=== PATIENT | male | born 1980 | race Caucasian/White ===

== ENCOUNTER → 2017-02-01 | Outpatient (REF) | payer OTHER ==
[2017-02-01 15:08] LABS: PERCENT SATURATION 21.8 % (19.7-37.4)
== END ==
LOC: M LAB REF 14:04
PROVIDERS: ATTEND Internal Medicine
DX: E83.110 Hereditary hemochromatosis (principal)

== ENCOUNTER → 2017-02-28 | Outpatient (REF) | payer OTHER | LOC: M LAB REF 13:07 | PROVIDERS: ATTEND Physician Assistant | DX: J02.9 Acute pharyngitis, unspecified (principal) ==

== ENCOUNTER → 2017-08-24 | Outpatient (REF) | payer OTHER ==
[2017-08-24 13:29] LABS: PERCENT SATURATION 32.7 % (19.7-50.0)
== END ==
LOC: M LAB REF 11:50
PROVIDERS: ATTEND Internal Medicine
DX: E83.110 Hereditary hemochromatosis (principal)

== ENCOUNTER → 2017-12-13 | Outpatient (CLI) | payer OTHER ==
[2017-12-13 10:57] LABS: BASO % 0.1 % (0.0-1.0); EOS % 0.5 % (0.0-3.0); HEMATOCRIT 43.9 % (42.0-52.0); HEMOGLOBIN 14.5 g/dl (14.0-18.0); IMMATURE GRANULOCYTE % 0.4 % (0-3.0); LYMPH # 1.6 10^3/uL (1.5-4.5); LYMPH % 21.1 % (24.0-44.0); MEAN CORPUSCULAR HEMOGLOBIN 28.9 pg (27.0-33.0); MEAN CORPUSCULAR VOLUME 87.6 fl (80.0-96.0); MONO # 0.6 10^3/uL (0.0-0.8); MONO % 8.3 % (0.0-5.0); NEUTROPHILS # 5.2 10^3/uL (1.8-7.7); NEUTROPHILS % 69.6 % (36.0-66.0); PLATELET COUNT, AUTOMATED 225 10^3/uL (150-450); RED BLOOD COUNT 5.01 10^6/uL (4.30-6.10); RED CELL DISTRIBUTION WIDTH 12.7 % (11.5-14.5); WHITE BLOOD COUNT 7.5 10^3/uL (4.0-10.0)
[2017-12-13 11:10] LABS: ALBUMIN 3.8 GM/DL (3.2-5.2); ALBUMIN/GLOBULIN RATIO 1.03 (1.00-1.93); ALKALINE PHOSPHATASE 60 U/L (45-117); ALT/SGPT 39 U/L (12-78); ANION GAP 6 MEQ/L (8-16); AST/SGOT 21 U/L (7-37); BILIRUBIN,TOTAL 0.8 MG/DL (0.2-1.0); BLOOD UREA NITROGEN 21 MG/DL (7-18); CALCIUM LEVEL 8.4 MG/DL (8.5-10.1); CARBON DIOXIDE LEVEL 30 MEQ/L (21-32); CHLORIDE LEVEL 104 MEQ/L (98-107); CREATININE FOR GFR 1.03 MG/DL (0.70-1.30); GLOMERULAR FILTRATION RATE > 60.0 (>60); GLUCOSE, FASTING 104 MG/DL (70-100); POTASSIUM SERUM 3.4 MEQ/L (3.5-5.1); SODIUM LEVEL 140 MEQ/L (136-145); TOTAL PROTEIN 7.5 GM/DL (6.4-8.2)
== END ==
LOC: M LAB 09:44
DX: R19.7 Diarrhea, unspecified (principal)
CPT/HCPCS: 80053

== ENCOUNTER → 2018-02-27 | Outpatient (REF) | payer OTHER ==
[2018-02-27 12:45] LABS: FERRITIN 114 NG/ML (26-388); IRON (FE) 112 UG/DL (65-175); PERCENT SATURATION 39.3 % (19.7-50.0); TOTAL IRON BINDING CAPACITY 285 UG/DL (250-450)
== END ==
LOC: M LAB REF 12:00
DX: E83.110 Hereditary hemochromatosis (principal)

== ENCOUNTER → 2018-08-26 | Outpatient (REF) | payer OTHER ==
[2018-08-26 13:17] LABS: FERRITIN 131 NG/ML (26-388); IRON (FE) 103 UG/DL (65-175); TOTAL IRON BINDING CAPACITY 312 UG/DL (250-450)
== END ==
LOC: M LAB REF 12:32
DX: E83.110 Hereditary hemochromatosis (principal)
CPT/HCPCS: 83550

== ENCOUNTER → 2019-02-03 | Outpatient (REF) | payer OTHER ==
[2019-02-03 14:04] LABS: PERCENT SATURATION 35.8 % (19.7-50.0)
== END ==
LOC: M LAB REF 12:22
PROVIDERS: ATTEND Internal Medicine
DX: E83.110 Hereditary hemochromatosis (principal)

== ENCOUNTER → 2020-02-20 | Outpatient (REF) | payer OTHER ==
[2020-02-20 12:41] LABS: PERCENT SATURATION 25.2 % (19.7-50.0)
== END ==
LOC: M LAB REF 12:04
PROVIDERS: ATTEND Internal Medicine
DX: E83.110 Hereditary hemochromatosis (principal)

== ENCOUNTER → 2021-03-02 | Outpatient (REF) | payer OTHER | LOC: M LAB REF 12:22 | PROVIDERS: ATTEND Internal Medicine | DX: E83.110 Hereditary hemochromatosis (principal); K75.81 Nonalcoholic steatohepatitis (NASH) ==

== ENCOUNTER → 2021-09-07 | Outpatient (REF) | payer OTHER ==
[2021-09-07 12:02] LABS: PERCENT SATURATION 35.2 % (19.7-50.0)
== END ==
LOC: M LAB REF 11:11
PROVIDERS: ATTEND Internal Medicine
DX: E83.110 Hereditary hemochromatosis (principal); K75.81 Nonalcoholic steatohepatitis (NASH)

== ENCOUNTER → 2022-03-15 | Outpatient (REF) | payer OTHER ==
[2022-03-15 13:29] LABS: FERRITIN 141 NG/ML (26-388); IRON (FE) 96 UG/DL (65-175); PERCENT SATURATION 36.4 % (19.7-50.0); TOTAL IRON BINDING CAPACITY 264 UG/DL (250-450)
[2022-03-15 13:48] LABS: HEPATITIS B SURFACE ANTIGEN NEGATIVE (NEGATIVE)
[2022-03-15 14:16] LABS: HEPATITIS B CORE ANTIBODY IGM NEGATIVE (NEGATIVE); HEPATITIS C VIRUS ABY INDEX 0.1 INDEX (<0.8)
== END ==
LOC: M LAB REF 12:13
PROVIDERS: ATTEND Internal Medicine
DX: E83.110 Hereditary hemochromatosis (principal); K75.81 Nonalcoholic steatohepatitis (NASH)

== ENCOUNTER → 2022-04-11 | Outpatient (CLI) | payer OTHER | LOC: M RAD 09:24 | PROVIDERS: ATTEND Internal Medicine | DX: K76.0 Fatty (change of) liver, not elsewhere classified (principal) ==

== ENCOUNTER → 2022-09-18 | Outpatient (REF) | payer OTHER ==
[2022-09-18 13:12] LABS: PERCENT SATURATION 27.9 % (19.7-50.0)
== END ==
LOC: M LAB REF 11:43
PROVIDERS: ATTEND Internal Medicine
DX: E83.110 Hereditary hemochromatosis (principal)

== ENCOUNTER → 2023-04-16 | Outpatient (REF) | payer OTHER | LOC: M LAB REF 12:16 | PROVIDERS: ATTEND Internal Medicine | DX: E83.110 Hereditary hemochromatosis (principal) ==

== ENCOUNTER 2023-07-13 18:30 | Emergency (ER) | payer OTHER ==
[~2023-07-13] VITALS: Ht 175.3 cm; Wt 163.6 kg
[2023-07-13 20:24] LABS: BASO % 0.2 % (0.0-1.0); EOS # 0.1 10^3/uL (0.0-0.5); EOS % 0.5 % (0.0-3.0); HEMATOCRIT 43.9 % (42.0-52.0); HEMOGLOBIN 14.2 g/dl (13.5-17.5); LYMPH # 1.9 10^3/uL (1.5-5.0); LYMPH % 16.2 % (24.0-44.0); MEAN CORPUSCULAR HEMOGLOBIN 28.5 pg (27.0-33.0); MEAN CORPUSCULAR HGB CONC 32.3 g/dl (32.0-36.5); MONO % 8.3 % (2.0-8.0); NEUTROPHILS # 8.6 10^3/uL (1.5-8.5); NEUTROPHILS % 74.4 % (36.0-66.0); PLATELET COUNT, AUTOMATED 221 10^3/uL (150-450); RED BLOOD COUNT 4.99 10^6/uL (4.30-6.10); WHITE BLOOD COUNT 11.6 10^3/uL (4.0-10.0)
[2023-07-13] MEDS ORDERED: ISOVUE-370 76% 100ML VIAL As Ordered ONE (20:41)
[2023-07-13 20:46] LABS: BLOOD UREA NITROGEN 23 MG/DL (9-23); CARBON DIOXIDE LEVEL 26 MMOL/L (20-31); CHLORIDE LEVEL 103 MMOL/L (98-107); CK-MB VALUE MASS < 1.0 NG/ML (<3.6); CREATININE FOR GFR 0.96 MG/DL (0.70-1.30); GLOMERULAR FILTRATION RATE > 60.0 (>60); GLUCOSE, FASTING 92 MG/DL (60-100); POTASSIUM SERUM 3.9 MMOL/L (3.5-5.1); SODIUM LEVEL 141 MMOL/L (136-145)
[2023-07-13 20:51] LABS: INR 1.13; PROTHROMBIN TIME 14.1 SECONDS (12.5-14.5)
[2023-07-13] MEDS ORDERED: SERT-141 PO (21:03)
[2023-07-13] MEDS ORDERED: SEMA2PEN SQ (21:03)
[2023-07-13] MEDS ORDERED: SYMB16INH INH (21:03)
[2023-07-13] MEDS ORDERED: METF500T13 PO (21:03)
[2023-07-13] MEDS ORDERED: VENTAER INH (21:03)
[2023-07-13] MEDS ORDERED: SIMV40TA20 PO (21:03)
[2023-07-13] MEDS ORDERED: MONT-5 PO (21:03)
[2023-07-13] MEDS ORDERED: OMEP-173 PO (21:04)
[2023-07-13] MEDS ORDERED: VITA400C83 PO (21:06)
[2023-07-13 21:10] LABS: ERYTHROCYTE SEDIMENTATION RATE 93 mm/hr (0-15)
[2023-07-13 21:23] LABS: RSV AMPLIFICATION NEGATIVE (NEGATIVE)
[2023-07-13] MEDS ORDERED: NS 1,000 ML IV ONE ×2 (21:25→23:25)
[2023-07-13] MEDS ORDERED: ACETAMINOPHEN 500 MG TAB PO ONE (21:25)
[2023-07-13 21:50] LABS: CPK CREATINE PHOSPHOKINASE 235 U/L (46-171); MB/CK RELATIVE INDEX 0.42 (< OR =4)
[2023-07-13] MEDS ORDERED: KETOROLAC 30 MG/ML 1ML VIAL IV ONE (23:25)
[2023-07-14 01:08] VITALS: BP 132/84; TEMP 98.6; O2SAT 97
[2023-07-14] MEDS ORDERED: MEDR4PAK PO (01:15)
[2023-07-14] MEDS ORDERED: CEPH500C PO (01:15)
[2023-07-15] MEDS ORDERED: CEPH500C PO (00:11)
[2023-07-15] MEDS ORDERED: MEDR4PAK PO (00:11)
[2023-07-15] MEDS ORDERED: METF-838 PO (00:11)
== END 2023-07-14 01:26 | disposition home or self-care (01) ==
LOC: M ED 18:30
DX: R07.9 Chest pain, unspecified (principal); L30.9 Dermatitis, unspecified; R50.9 Fever, unspecified; R25.2 Cramp and spasm; E11.9 Type 2 diabetes mellitus without complications; J45.909 Unspecified asthma, uncomplicated; K74.60 Unspecified cirrhosis of liver; Z79.899 Other long term (current) drug therapy
CPT/HCPCS: 71046; 71275; 80048; 82550; 82553; 83605; 83880; 84484; 85025; 85610; 85652; 86140; 87040; 87631; 93005; 93041; 93971; 94760; 96361; 96374; 99284; J1885; Q9967

== ENCOUNTER 2023-07-14 20:40 | Inpatient (IN) | payer OTHER ==
[~2023-07-14] VITALS: Ht 175.3 cm; Wt 158.3 kg
[~2023-07-14 20:40] MED LIST: CEPH500C PO; MEDR4PAK PO; METF500T13 PO; MONT-5 PO; OMEP-173 PO; SEMA2PEN SQ; SERT-141 PO; SIMV40TA20 PO; SYMB16INH INH; VENTAER INH; VITA400C83 PO
[2023-07-14] MEDS ORDERED: NS 1,000 ML IV ONE (21:10)
[2023-07-14] MEDS ORDERED: methylPREDNISolone 125MG 2ML VIAL IV ONE (21:10)
[2023-07-14 21:58] LABS: BASO % 0.1 % (0.0-1.0); EOS % 0.1 % (0.0-3.0); HEMATOCRIT 37.4 % (42.0-52.0); HEMOGLOBIN 12.3 g/dl (13.5-17.5); LYMPH # 1.3 10^3/uL (1.5-5.0); LYMPH % 8.9 % (24.0-44.0); MEAN CORPUSCULAR HEMOGLOBIN 28.7 pg (27.0-33.0); MEAN CORPUSCULAR HGB CONC 32.9 g/dl (32.0-36.5); MEAN CORPUSCULAR VOLUME 87.4 fl (80.0-96.0); NEUTROPHILS # 11.9 10^3/uL (1.5-8.5); NEUTROPHILS % 83.4 % (36.0-66.0); PLATELET COUNT, AUTOMATED 202 10^3/uL (150-450); RED BLOOD COUNT 4.28 10^6/uL (4.30-6.10); WHITE BLOOD COUNT 14.3 10^3/uL (4.0-10.0)
[2023-07-14 22:09] LABS: ERYTHROCYTE SEDIMENTATION RATE 81 mm/hr (0-15)
[2023-07-14 22:12] LABS: INR 1.16; PARTIAL THROMBOPLASTIN TIME 23.4 SECONDS (24.8-34.2); PROTHROMBIN TIME 14.5 SECONDS (12.5-14.5)
[2023-07-14 22:18] LABS: LIPASE 52 U/L (12-53)
[2023-07-14 22:20] LABS: ALBUMIN 3.2 G/DL (3.2-5.2); ALKALINE PHOSPHATASE 79 U/L (46-116); ALT/SGPT 19 U/L (7.0-40); AST/SGOT 14 U/L (<34); BILIRUBIN,DIRECT 0.3 MG/DL (<0.4); BILIRUBIN,TOTAL 0.8 MG/DL (0.3-1.2); BLOOD UREA NITROGEN 17 MG/DL (9-23); CALCIUM LEVEL 8.5 MG/DL (8.5-10.1); CARBON DIOXIDE LEVEL 25 MMOL/L (20-31); CHLORIDE LEVEL 106 MMOL/L (98-107); GLOMERULAR FILTRATION RATE > 60.0 (>60); GLUCOSE, FASTING 119 MG/DL (60-100); POTASSIUM SERUM 3.9 MMOL/L (3.5-5.1); SODIUM LEVEL 140 MMOL/L (136-145); TOTAL PROTEIN 6.6 G/DL (5.7-8.2)
[2023-07-14 22:27] LABS: PROCALCITONIN 0.11 ng/ml
[2023-07-15] MEDS ORDERED: METF-838 PO (00:11)
[2023-07-15] MEDS ORDERED: MEDR4PAK PO (00:11)
[2023-07-15] MEDS ORDERED: CEPH500C PO (00:11)
[2023-07-15] MEDS ORDERED: HOME MED LIST COMPLETE! XX SCH (00:15)
[2023-07-15] MEDS ORDERED: ACETAMINOPHEN TAB 650MG DOSE (2X325MG) PO PRN (01:40)
[2023-07-15] MEDS ORDERED: ALBUTEROL 90 MCG/ACT 8GM HFA INHALER INH PRN (01:40)
[2023-07-15 02:05] VITALS: BP 137/83; TEMP 97.9; O2SAT 94
[2023-07-15 05:40] VITALS: BP 134/83; TEMP 97.9; O2SAT 95
[2023-07-15 06:29] LABS: COMPLEMENT C3 216.5 MG/DL (90.0-170.0); COMPLEMENT C4 48.2 MG/DL (12-36); RHEUMATOID FACTOR QUANT 15.9 IU/ML (<14)
[2023-07-15 06:30] LABS: HEPATITIS B SURFACE ANTIBODY POSITIVE (POSITIVE)
[2023-07-15 07:15] LABS: HIV 1&2 SCREEN NEGATIVE (NEGATIVE)
[2023-07-15] MEDS ORDERED: metFORMIN XR 500MG TAB *GLUCOPHAGE XR PO SCH (08:00)
[2023-07-15] MEDS: SYMBICORT 160/4.5MCG INHALER 6GM INH SCH ×2 (08:14→20:17)
[2023-07-15] MEDS ORDERED: LIDOCAINE W/EPINEPHRINE 1% 20ML VIAL SC ONE (08:35)
[2023-07-15] MEDS ORDERED: GLUCAGON INJ 1MG VIAL SC PRN (08:40)
[2023-07-15] MEDS ORDERED: GLUCOSE 4GM CHEW TABLET PO PRN (08:40)
[2023-07-15] MEDS ORDERED: DEXTROSE 50% 50ML SYRINGE IV PRN (08:40)
[2023-07-15] MEDS ORDERED: predniSONE 20 MG TAB PO SCH (09:00)
[2023-07-15] MEDS: MONTELUKAST 10 MG TAB PO SCH (09:18)
[2023-07-15] MEDS: SIMVASTATIN 40 MG TAB PO SCH (09:18)
[2023-07-15] MEDS: SERTRALINE HCL 50 MG TAB PO SCH (09:18)
[2023-07-15] MEDS: INSULIN LISPRO (NovoLOG) PER UNIT SC SCH ×3 (09:19→17:55)
[2023-07-15] MEDS: ENOXAPARIN 60MG/0.6ML SYRINGE (J1650 PER 10MG) SC SCH ×2 (09:19→21:11)
[2023-07-15] MEDS: VITAMIN E 400 INTERNATIONAL UNITS CAP PO SCH (09:23)
[2023-07-15 11:26] LABS: APPEARANCE, URINE CLEAR (CLEAR); BACTERIA, URINE AUTO NEGATIVE (NEGATIVE); BILIRUBIN, URINE AUTO NEGATIVE (NEGATIVE); BLOOD, URINE BLOOD NEGATIVE (NEGATIVE); COLOR, URINE YELLOW (YELLOW); GLUCOSE, URINE (UA) AUTO NEGATIVE (NEGATIVE); KETONE, URINE AUTO TRACE mg/dL (NEGATIVE); LEUKOCYTE ESTERASE, URINE AUTO NEGATIVE (NEGATIVE); MUCUS, URINE SMALL (NEGATIVE); NITRITE, URINE AUTO NEGATIVE (NEGATIVE); PROTEIN, URINE AUTO 1+ mg/dL (NEGATIVE); RBC, URINE AUTO 4 /HPF (0-3); SPECIFIC GRAVITY URINE AUTO 1.026 (1.002-1.035); SQUAMOUS EPITHELIAL CELL UR AU 0 /HPF (0-6); WBC, URINE AUTO 1 /HPF (0-3)
[2023-07-15] MEDS ORDERED: predniSONE 20 MG TAB PO ONE (12:00)
[2023-07-15] MEDS: methylPREDNISolone 125MG 2ML VIAL IV SCH ×2 (12:56→17:54)
[2023-07-15 14:00] VITALS: BP 133/83; TEMP 98.1; O2SAT 96
[2023-07-15 15:07] LABS: TOTAL PROTEIN,RANDOM URINE 45.2 MG/DL (0.0-14.0)
[2023-07-15 15:12] LABS: CREATININE, URINE 188.2 MG/DL; CREATININE,RANDOM URINE 188.2 MG/DL; MAU/CREAT RATIO 29.2 MCG/MG (0.0-30.0)
[2023-07-15] MEDS ORDERED: OMEPRAZOLE 20MG CAP PO SCH (21:00)
[2023-07-15] MEDS ORDERED: INSULIN LISPRO (NovoLOG) PER UNIT SC SCH (21:00)
[2023-07-16] MEDS: methylPREDNISolone 125MG 2ML VIAL IV SCH ×2 (00:09→05:45)
[2023-07-16 04:57] VITALS: BP 132/85; TEMP 97.5; O2SAT 92
[2023-07-16] MEDS: SYMBICORT 160/4.5MCG INHALER 6GM INH SCH (07:25)
[2023-07-16] MEDS: SIMVASTATIN 40 MG TAB PO SCH (08:01)
[2023-07-16] MEDS: MONTELUKAST 10 MG TAB PO SCH (08:01)
[2023-07-16] MEDS: VITAMIN E 400 INTERNATIONAL UNITS CAP PO SCH (08:01)
[2023-07-16] MEDS: INSULIN LISPRO (NovoLOG) PER UNIT SC SCH (08:01)
[2023-07-16] MEDS: SERTRALINE HCL 50 MG TAB PO SCH (08:02)
[2023-07-16] MEDS: ENOXAPARIN 60MG/0.6ML SYRINGE (J1650 PER 10MG) SC SCH (08:02)
[2023-07-16] MEDS ORDERED: PRED10TA2 PO (08:56)
[2023-07-16] MEDS ORDERED: GABA-1171 PO (08:57)
[2023-07-19 16:08] LABS: ANCA-ATYPICAL <1:20 titer (Neg:<1:20); CYTOPLASMIC NEUTROP AB ANCA-C <1:20 titer (Neg:<1:20); PERINUCLEAR AB ANCA-P <1:20 titer (Neg:<1:20)
[2023-07-24 14:08] LABS: ANTI DOUBLE STRAND-DNA AB 1 IU/mL (0-9); ANTI DS-DNA AB Negative (Negative); ANTI SMITH(Sm) AB <20 Units (<20); ANTI-U1 RNP AB <20 Units (<20); ANTINUCLEAR ANTIBODIES DIRECT Positive (Negative); HEPATITIS C QUANTITATION HCV Not Detected IU/mL (.); RNP ANTIBODIES <0.2 AI (0.0-0.9); SJOGREN'S ANTI SS-A <0.2 AI (0.0-0.9); SJOGREN'S ANTI SS-B 3.8 AI (0.0-0.9); SMITH ANTIBODIES <0.2 AI (0.0-0.9)
== END 2023-07-16 10:55 | disposition home or self-care (01) | DRG 547 ==
LOC: M ED 20:40 → M ED INP 23:52 → ENRESERV 07-15 01:04 → M MSPAV 07-15 02:30
PROVIDERS: ADMIT Family Medicine; ATTEND Student in an Organized Health Care Education/Training Program
PROC: 0HBLXZX Excision of Left Lower Leg Skin, External Approach, Diagnostic (ICD-10-PCS; principal; 2023-07-15)
DX: I77.6 Arteritis, unspecified (principal); G47.33 Obstructive sleep apnea (adult) (pediatric); J45.909 Unspecified asthma, uncomplicated; K21.9 Gastro-esophageal reflux disease without esophagitis; E78.5 Hyperlipidemia, unspecified; F41.9 Anxiety disorder, unspecified; R73.03 Prediabetes; R31.29 Other microscopic hematuria; Z79.84 Long term (current) use of oral hypoglycemic drugs; Z79.899 Other long term (current) drug therapy; K74.60 Unspecified cirrhosis of liver; K75.81 Nonalcoholic steatohepatitis (NASH); T38.3X5A Adverse effect of insulin and oral hypoglycemic [antidiabetic] drugs, initial encounter

== ENCOUNTER → 2024-10-09 | Outpatient (REF) | payer OTHER ==
[~2024-10-09] MED LIST changes: +E-401CAP2 PO; +GABA-1171 PO; +METF-838 PO; +PRED10TA2 PO; -VITA400C83 PO
== END ==
LOC: M SFHCDERM 17:10
PROVIDERS: ATTEND Nurse Practitioner Family
DX: L08.9 Local infection of the skin and subcutaneous tissue, unspecified (principal)

== ENCOUNTER → 2025-03-25 | Outpatient (REF) | payer OTHER ==
[2025-03-25 14:40] LABS: PERCENT SATURATION 32.2 % (19.7-50.0)
[2025-03-25 14:43] LABS: FERRITIN 71.3 NG/ML (10.5-307.3)
== END ==
LOC: M LAB REF 14:14
PROVIDERS: ATTEND Internal Medicine
DX: E83.110 Hereditary hemochromatosis (principal)

== ENCOUNTER → 2025-05-07 | Outpatient (CLI) | payer OTHER ==
[~2025-05-07] MED LIST changes: +METHACHOLINE KIT (6 VIAL.NEB PREMIX) INH ONE
== END ==
LOC: M CARPUL 10:35
PROVIDERS: ATTEND Physician Assistant
DX: R06.00 Dyspnea, unspecified (principal)
CPT/HCPCS: 94070; 95070; J7674